=== PATIENT | female | born 1995 | race American Indian/Alaskan Native ===

== ENCOUNTER 2018-02-25 10:53 | Emergency (ER) | payer MEDICAID, OTHER ==
[2018-02-25 10:59] VITALS: BP 107/74
--- NOTE | 2018-02-25 11:27 | Emergency Department Report ---
Blank Doc - Documentation Documentation: Patient is a 22-year-old female presented with some vaginal discharge and lower abdominal crampiness for the past 2-3 days. Patient is not sure if she's been exposed to 60 transmitted disease. Patient removed to fast-track area for pelvic exam and urinalysis and test.
[2018-02-25 14:34] LABS: HCG Qualitative,Urine Negative (Negative)
[2018-02-25 14:39] LABS: Bacteria,Urine 1+ /HPF (Negative); Bilirubin,Urine NEG (Negative); Blood,Urine NEG (Negative); Color,Urine Yellow (Yellow); Hyaline Casts,Urine 1 /LPF; Mucus,Urine 1+ /HPF; Protein,Urine <15 mg/dL mg/dL (Negative); Urobilinogen,Urine < 2.0 mg/dL (<2.0)
--- NOTE | 2018-02-25 15:32 | Emergency Department Report ---
ED Female HPI - General Chief complaint: Urogenital-Female Stated complaint: POSSIBLE STD/VAGINAL ITCHING Time Seen by Provider: 02/25/18 11:25 Source: patient Mode of arrival: Ambulatory Limitations: No Limitations - History of Present Illness Initial comments: This is a 22-year-old -[place] female who presents with vaginal itching and discharge for 4 days. She has not currently taking anything for symptom relief. She is not sure if she has been exposed to an STD. Reports having clear or white discharge at times the past 3-4 days. Denies dysuria, frequency , urgency, pelvic pain, and low back pain. MD Complaint: vaginal discharge (thin White discharge) -: days(s) (4 days) Radiation: non-radiating Severity: mild Severity scale (0 -10): 0 Consistency: intermittent Improves with: none Worsens with: none Are you Now?: No Associated Symptoms: vaginal discharge. denies: vaginal bleeding, abdominal pain, nausea/vomiting, fever/chills, headaches, loss of appetite, dysuria, hematuria, rash, seizure, shortness of breath, syncope, weakness - Related Data Sexually active: Yes Home Medications Medication Instructions Recorded Confirmed Last Taken Pnv with Ca,No.72/Iron/FA 1 tab PO DAILY 11/02/13 11/20/13 11/01/13 12:00 [ Plus Tablet] Previous Rx's Medication Instructions Recorded Last Taken Type Clindamycin [Clindamycin CAP] 450 mg PO QID #56 capsule 11/21/13 Unknown Rx Doxycycline [Vibramycin CAP] 100 mg PO BID #28 capsule 11/21/13 Unknown Rx HYDROcodone/APAP 5-325 [Irene 1 each PO Q8HR PRN #10 tablet 11/21/13 Unknown Rx 5-325 mg TAB] Ibuprofen [Motrin 600 MG tab] 600 mg PO Q6HR #60 tablet 11/21/13 Unknown Rx metroNIDAZOLE [Metronidazole] 500 mg PO BID 7 Days #14 tablet 02/25/18 Unknown Rx Allergies Allergy/AdvReac Type Severity Reaction Status Date / Time No Known Allergies Allergy Verified 10/10/13 12:28 ED Review of Systems ROS: Stated complaint: POSSIBLE STD/VAGINAL ITCHING Other details as noted in HPI Constitutional: denies: chills, fever Respiratory: denies: cough, shortness of breath, wheezing Cardiovascular: denies: chest pain, palpitations Gastrointestinal: denies: abdominal pain, nausea, vomiting, diarrhea Genitourinary: discharge (thin White discharge). denies: urgency, dysuria Musculoskeletal: denies: back pain, joint swelling, arthralgia Neurological: denies: headache, weakness, paresthesias Psychiatric: denies: anxiety, depression ED Past Medical Hx - Past Medical History Hx Hypertension: No Hx Congestive Heart Failure: No Hx Diabetes: No Hx Deep Vein Thrombosis: No Hx Renal Disease: No Hx Sickle Cell Disease: No Hx Seizures: No Hx Asthma: No Hx COPD: No Hx HIV: No - Surgical History Past Surgical History?: No - Social History Smoking Status: Never Smoker Substance Use Type: None - Medications Home Medications: Home Medications Medication Instructions Recorded Confirmed Last Taken Type Pnv with Ca,No.72/Iron/FA 1 tab PO DAILY 11/02/13 11/20/13 11/01/13 12:00 History [ Plus Tablet] Clindamycin [Clindamycin CAP] 450 mg PO QID #56 capsule 11/21/13 Unknown Rx Doxycycline [Vibramycin CAP] 100 mg PO BID #28 capsule 11/21/13 Unknown Rx HYDROcodone/APAP 5-325 [Irene 1 each PO Q8HR PRN #10 tablet 11/21/13 Unknown Rx 5-325 mg TAB] Ibuprofen [Motrin 600 MG tab] 600 mg PO Q6HR #60 tablet 11/21/13 Unknown Rx metroNIDAZOLE [Metronidazole] 500 mg PO BID 7 Days #14 tablet 02/25/18 Unknown Rx ED Physical Exam - General Limitations: No Limitations General appearance: alert, in no apparent distress - Respiratory Respiratory exam: Present: normal lung sounds bilaterally. Absent: respiratory distress - Cardiovascular Cardiovascular Exam: Present: regular rate, normal rhythm, normal heart sounds. Absent: systolic murmur, diastolic murmur, rubs, gallop - GI/Abdominal GI/Abdominal exam: Present: soft, normal bowel sounds - External exam: Present: normal external exam Speculum exam: Present: vaginal discharge (white frothy discharge). Absent: erythema, cervical discharge, vaginal bleeding, foreign body, tissue, laceration Bi-manual exam: Present: normal bi-manual exam - Neurological Exam Neurological exam: Present: alert, oriented X3 - Psychiatric Psychiatric exam: Present: normal affect, normal mood - Skin Skin exam: Present: warm, dry, intact, normal color. Absent: rash ED Course Vital Signs 02/25/18 10:57 Temperature 97.9 F Pulse Rate 61 Respiratory 16 Rate Blood Pressure 107/74 O2 Sat by Pulse 100 Oximetry ED Medical Decision Making - Medical Decision Making This is a 22-year-old -[place] male who presents with vaginal itching and discharge for 4 days. Patient was examined by me. Vitals are stable and in no acute distress. Obtained UA, urine hCG, wet prep, GC. Urinalysis within normal limits, negative hCG, pending GC. Wet prep loss by pharmacy. Patient did not want a second evaluation. Given metronidazole 500 mg by mouth for bacterial vaginitis and possibly Trichomonas. We will continue treatment at home with metronidazole for 7 days. Discharged home in stable condition. Start metronidazole 500 mg by mouth twice a day 7 days. Discussed prevention options. F/U with PCP or Health Department. Critical care attestation.: If time is entered above; I have spent that time in minutes in the direct care of this critically ill patient, excluding procedure time. ED Disposition Clinical Impression: Bacterial vaginitis Disposition: TO HOME OR SELFCARE Is pt being admited?: No Does the pt Need Aspirin: No Condition: Stable Instructions: Bacterial Vaginosis (ED) Additional Instructions: Avoid drinking alcohol while taking antibiotics and for 24 hours after completion. Continue safe sexual intercourse. Follow up with Primary Care Provider or health department. Prescriptions: metroNIDAZOLE [Metronidazole] 500 mg PO BID 7 Days #14 tablet Referrals: [facility] [Outside] - 3-5 Days [facility] [Outside] - 3-5 Days [facility] [Outside] - 3-5 Days Forms: STI Treatment and Prevention Time of Disposition: 15:49 Print Language: NICARAGU[place]
[2018-02-25] MEDS ORDERED: FLAGYL PO ONE (15:45)
== END 2018-02-25 15:59 | disposition home or self-care (01) ==
LOC: ED 10:53
DX: N76.0 Acute vaginitis (principal)
CPT/HCPCS: 81001; 81025; 87591